=== PATIENT | female | born 1995 | race African-American/Black ===

== ENCOUNTER 2017-04-14 17:09 | Emergency (ER) | payer OTHER ==
[~2017-04-14] VITALS: Ht 160 cm; Wt 54.5 kg
[2017-04-14] MEDS ORDERED: CLON1TAB PO (17:24)
[2017-04-14 19:38] VITALS: BP 135/75
== END 2017-04-14 19:40 | disposition home or self-care (01) ==
LOC: M ED 17:09
DX: F41.0 Panic disorder [episodic paroxysmal anxiety] (principal)

== ENCOUNTER 2017-05-02 12:14 | Emergency (ER) | payer OTHER ==
[~2017-05-02] VITALS: Ht 160 cm; Wt 54.5 kg
[~2017-05-02 12:14] MED LIST: CLON1TAB PO
[2017-05-02 16:19] LABS: BASO % 0.6 % (0.0-1.0); EOS # 0.1 10^3/uL (0.0-0.50); EOS % 1.5 % (0.0-3.0); IMMATURE GRANULOCYTE % 0.2 % (0-0); LYMPH # 2.3 10^3/uL (1.5-6.5); LYMPH % 42.2 % (24.0-44.0); MEAN CORPUSCULAR HEMOGLOBIN 28.9 pg (27.0-33.0); MEAN CORPUSCULAR HGB CONC 33.4 g/dl (32.0-36.5); MEAN CORPUSCULAR VOLUME 86.4 fl (80.0-96.0); MONO # 0.5 10^3/uL (0.0-0.8); NEUTROPHILS # 2.5 10^3/uL (1.8-7.7); NEUTROPHILS % 46.5 % (36.0-66.0); PLATELET COUNT, AUTOMATED 365 10^3/uL (150-450); RED CELL DISTRIBUTION WIDTH 13.4 % (11.5-14.5); WHITE BLOOD COUNT 5.4 10^3/uL (4.0-10.0)
[2017-05-02 16:55] LABS: ANION GAP 4 MEQ/L (8-16); BLOOD UREA NITROGEN 10 MG/DL (7-18); CALCIUM LEVEL 8.7 MG/DL (8.5-10.1); CARBON DIOXIDE LEVEL 28 MEQ/L (21-32); CHLORIDE LEVEL 105 MEQ/L (98-107); GLOMERULAR FILTRATION RATE > 60.0 (>60); GLUCOSE, FASTING 84 MG/DL (70-105); POTASSIUM SERUM 4.4 MEQ/L (3.5-5.1); SODIUM LEVEL 137 MEQ/L (136-145)
[2017-05-02 17:50] VITALS: BP 138/70
--- NOTE | 2017-05-03 08:08 | ECGEPIP ---
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
== END 2017-05-02 17:51 | disposition home or self-care (01) ==
LOC: M ED 12:14
DX: F41.9 Anxiety disorder, unspecified (principal); R06.4 Hyperventilation

== ENCOUNTER 2017-12-03 11:07 | Emergency (ER) | payer OTHER | END 2017-12-03 12:07 | disposition home or self-care (01) | LOC: M ED 11:07 | DX: J02.9 Acute pharyngitis, unspecified (principal) | CPT/HCPCS: 87880 ==

== ENCOUNTER 2018-01-12 16:38 | Emergency (ER) | payer OTHER | END 2018-01-12 18:02 | disposition home or self-care (01) | LOC: M ED 16:38 | DX: L60.3 Nail dystrophy (principal) | CPT/HCPCS: 99282 ==

== ENCOUNTER 2018-02-13 06:59 | Emergency (ER) | payer OTHER | END 2018-02-13 07:56 | disposition home or self-care (01) | LOC: M ED 06:59 | DX: S69.91XA Unspecified injury of right wrist, hand and finger(s), initial encounter (principal); W49.04XA Ring or other jewelry causing external constriction, initial encounter; Y92.89 Other specified places as the place of occurrence of the external cause | CPT/HCPCS: 99284 ==

== ENCOUNTER 2018-11-24 02:03 | Emergency (ER) | payer OTHER ==
[~2018-11-24] VITALS: Ht 160 cm; Wt 56.8 kg
[2018-11-24 02:03] VITALS: BP 136/79
[~2018-11-24 02:03] MED LIST changes: +BENZ200C70 PO; -CLON1TAB PO; +CLON1TAB8 PO; +KEFL500C17 PO
--- NOTE | 2018-11-24 06:21 | REP ---
Clinical: Foreign body. This stone. Technique: PA and lateral views of the soft tissue neck. Findings: Osseous structures are intact and normal. Soft tissues are unremarkable. No foreign body or subcutaneous emphysema appreciated. Impression: Normal soft tissue neck radiographs. No obvious foreign body. Electronically Signed by Jeremías Suazo MD 11/24/2018 06:11 A
== END 2018-11-24 03:18 | disposition home or self-care (01) ==
LOC: M ED 02:03
DX: R13.10 Dysphagia, unspecified (principal)

== ENCOUNTER 2018-12-14 09:43 | Day surgery (SDC) | payer OTHER ==
[~2018-12-14] VITALS: Ht 160 cm; Wt 58.5 kg
[~2018-12-14 09:43] MED LIST changes: +LIDOCAINE 1% MDV 20ML VIAL SQ PRN; +LR 1,000 ML IV ONE
[2018-12-14] MEDS ORDERED: BUPIVACAINE HCL 0.5% 10 ML VIAL As Ordered ONE (09:48)
[2018-12-14 10:38] LABS: URINE PREG TEST NEGATIVE (NEGATIVE)
[2018-12-14] MEDS ORDERED: MIDAZOLAM INJ 2 MG/2 ML VIAL (J2250) As Ordered ONE (10:48)
[2018-12-14] MEDS ORDERED: fentaNYL 100 MCG/2 ML INJECTION (J3010) As Ordered ONE ×2 (10:48→13:55)
[2018-12-14] MEDS ORDERED: VITAMIN C (10:48)
[2018-12-14] MEDS ORDERED: PROPOFOL 200 MG/20 ML VIAL As Ordered ONE ×3 (10:50→14:31)
[2018-12-14] MEDS ORDERED: ROCURONIUM BROMIDE 50 MG/5 ML VIAL As Ordered ONE ×2 (10:51→13:58)
[2018-12-14] MEDS ORDERED: LIDOCAINE 2% INJ 100 MG/5 ML SDV (FOR ANES.) As Ordered ONE ×2 (10:53→13:55)
[2018-12-14] MEDS ORDERED: LR 1,000 ML IV SCH ×2 (12:30→15:30)
[2018-12-14] MEDS ORDERED: IBUPROFEN 800 MG TAB PO PRN (12:30)
[2018-12-14] MEDS ORDERED: PERCOCET 5MG/325MG TAB PO PRN ×2 (12:30→15:30)
[2018-12-14] MEDS ORDERED: fentaNYL 100 MCG/2 ML INJECTION (J3010) IV PRN ×2 (12:30→15:30)
[2018-12-14] MEDS ORDERED: oxyCODONE 5MG TAB PO PRN (12:30)
[2018-12-14] MEDS ORDERED: HYDROcodone/APAP LIQUID 7.5-325MG 15ML UDC (LORTAB ELIXIR) PO PRN (12:30)
[2018-12-14] MEDS ORDERED: ONDANSETRON 4MG/2ML VIAL (J2405) IV PRN ×2 (12:30→15:30)
[2018-12-14] MEDS: MEPERIDINE INJ 25 MG/ML VIAL (J2175) IV PRN ×2 (15:20→15:46)
[2018-12-14] MEDS ORDERED: MEPERIDINE INJ 25 MG/ML VIAL (J2175) As Ordered ONE (15:25)
[2018-12-14] MEDS ORDERED: oxyCODONE 5MG TAB As Ordered ONE (15:40)
[2018-12-14 17:05] VITALS: BP 135/80
== END 2018-12-14 17:25 | disposition home or self-care (01) ==
LOC: M SDC 09:43
PROVIDERS: ATTEND Specialist
DX: J35.01 Chronic tonsillitis (principal); F41.9 Anxiety disorder, unspecified
CPT/HCPCS: 42826; 84703; 88302; J2175; J2250; J3010